=== PATIENT | male | born 1945 | race Caucasian/White ===

== ENCOUNTER 2017-05-11 06:47 | Day surgery (SDC) | payer MEDICARE, BC ==
[~2017-05-11] VITALS: Ht 170.2 cm; Wt 88.5 kg
[~2017-05-11 06:47] MED LIST: AMLODIPINE5 MG PO; ASPIRIN EC325 MG PO; ATORVASTATIN CA40 MG PO; ELIQUIS2.5 MG PO; FOLIC ACI1 PO; HYDROCHLOROT25 MG PO; LISINOPRIL40 MG PO; LO-DOSE ASA81 MG PO; METO25TAB PO; MULTIVITAMI9 PO; NITROSTAT0.4 MG SL; TAMSULOSIN HCL0.4 MG PO
[2017-05-11 09:13] VITALS: BP 90/51
== END 2017-05-11 09:25 | disposition home or self-care (01) ==
LOC: ENDO 06:47
PROVIDERS: ATTEND Surgery
PROC: 0DJD8ZZ Inspection of Lower Intestinal Tract, Via Natural or Artificial Opening Endoscopic (ICD-10-PCS; principal; 2017-05-11)
DX: Z12.11 Encounter for screening for malignant neoplasm of colon (principal); Z87.891 Personal history of nicotine dependence; Z95.1 Presence of aortocoronary bypass graft; Z95.5 Presence of coronary angioplasty implant and graft; Z79.01 Long term (current) use of anticoagulants

== ENCOUNTER 2018-04-09 13:20 | Emergency (ER) | payer MEDICARE, BC ==
[~2018-04-09] VITALS: Ht 170.2 cm; Wt 87.7 kg
[2018-04-09 14:14] LABS: ALBUMIN 3.9 g/dL (3.2-5.0); ALKALINE PHOSPHATASE 145 u/l (38-126); ANION GAP 13 (6-22 (CALC)); BILIRUBIN, TOTAL 0.6 mg/dL (0.0-1.4); BUN 26 mg/dL (8-23); BUN/CREATININE RATIO 31 (12-20 (CALC)); CARBON DIOXIDE 24 mmol/l (22-30); CHLORIDE 107 mmol/l (95-108); CREATININE 0.8 mg/dL (0.7-1.3); GFR > 60 ML/MIN (>=60 (CALC)); GFR FOR AFR.AMER. > 60 ML/MIN (>=60 (CALC)); POTASSIUM 3.9 mmol/l (3.5-5.1); SGOT/AST 34 u/l (19-48); SODIUM 141 mmol/l (137-146)
[2018-04-09 14:16] LABS: HEMATOCRIT 36.8 % (39.0-50.0); HEMOGLOBIN 13.2 g/dl (14.0-18.0); IMMATURE GRANULOCYTES 0.3 % (0.0-5.0); MEAN CELL VOLUME 90.4 fL CALC (80.0-100.0); MEAN CORPUSCULAR HGB 32.4 pG CALC (26.0-32.0); MEAN CORPUSCULAR HGB CONC 35.9 g/L CALC (32.0-36.0); NEUT# 3.75 thou/uL (1.82-7.42); RED BLOOD COUNT 4.07 mill/uL (4.70-6.10); RED CELL DISTRI WIDTH 12.1 % (11.5-15.5)
[2018-04-09 14:24] LABS: MYOGLOBIN 54 ng/mL (0 - 121)
[2018-04-09 14:52] LABS: URINE BILIRUBIN - DIPSTICK NEGATIVE (NEGATIVE); URINE BLOOD DIPSTICK NEGATIVE (NEGATIVE); URINE COLOR YELLOW; URINE GLUCOSE - DIPSTICK NEGATIVE (NEGATIVE); URINE KETONE NEGATIVE (NEGATIVE); URINE LEUK ESTERASE NEGATIVE (NEGATIVE); URINE NITRITE - DIPSTICK NEGATIVE (Negative); URINE PROTEIN - DIPSTICK NEGATIVE (NEG-TRACE); URINE UROBILINOGEN - DIPSTICK 0.2 E.U./dL (0.2)
[2018-04-09 15:06] VITALS: BP 163/77
== END 2018-04-09 15:06 | disposition left against medical advice (07) ==
LOC: ED 13:20
PROVIDERS: Emergency Medicine
DX: R07.9 Chest pain, unspecified (principal); Z91.19 Patient's noncompliance with other medical treatment and regimen; R00.1 Bradycardia, unspecified; I10 Essential (primary) hypertension; Z95.1 Presence of aortocoronary bypass graft

== ENCOUNTER 2019-04-29 | Emergency (ER) | payer MEDICARE, BC ==
[2019-04-29] MEDS ORDERED: MEMANTINE HCL10 MG PO (09:35)
[2019-04-29] MEDS ORDERED: NORVASC5 M1 PO (09:37)
[2019-04-29] MEDS ORDERED: CLEOCIN300 MG PO (10:53)
[2019-04-29] MEDS ORDERED: ULTRAM50 M1 PO (10:53)
[2019-04-29] MEDS ORDERED: CRESTOR10 MG PO (17:45)
[2019-04-29] MEDS ORDERED: METOPROL TAR25 MG PO (17:45)
[2019-04-29] MEDS ORDERED: AVODART0.5 MG PO (17:46)
[2019-04-29] MEDS ORDERED: TRAZODONE50 MG PO (17:46)
== END 2019-04-29 11:40 | disposition home or self-care (01) ==
PROC: 0H9FX0Z Drainage of Right Hand Skin with Drainage Device, External Approach (ICD-10-PCS; principal; 2019-04-29)
DX: L03.011 Cellulitis of right finger (principal); I10 Essential (primary) hypertension

== ENCOUNTER 2019-10-04 04:59 | Emergency (ER) | payer MEDICARE, BC ==
[~2019-10-04 04:59] MED LIST changes: +AVODART0.5 MG PO; +CLEOCIN300 MG PO; +CRESTOR10 MG PO; +MEMANTINE HCL10 MG PO; +METOPROL TAR25 MG PO; +NORVASC5 M1 PO; +TRAZODONE50 MG PO; +ULTRAM50 M1 PO
[2019-10-04 05:44] LABS: URINE BILIRUBIN - DIPSTICK NEGATIVE (NEGATIVE); URINE BLOOD DIPSTICK NEGATIVE (NEGATIVE); URINE COLOR YELLOW; URINE GLUCOSE - DIPSTICK NEGATIVE (NEGATIVE); URINE KETONE NEGATIVE (NEGATIVE); URINE NITRITE - DIPSTICK NEGATIVE (Negative); URINE PROTEIN - DIPSTICK NEGATIVE (NEG-TRACE); URINE UROBILINOGEN - DIPSTICK 0.2 E.U./dL (0.2)
[2019-10-04 05:45] LABS: HEMATOCRIT 36.7 % (39.0-50.0); HEMOGLOBIN 13.1 g/dl (14.0-18.0); IMMATURE GRANULOCYTES 0.2 % (0.0-5.0); MEAN CELL VOLUME 90.8 fL CALC (80.0-100.0); MEAN CORPUSCULAR HGB 32.4 pG CALC (26.0-32.0); MEAN CORPUSCULAR HGB CONC 35.7 g/dL CAL (32.0-36.0); NEUT# 2.75 thou/uL (1.82-7.42); RED BLOOD COUNT 4.04 mill/uL (4.70-6.10); RED CELL DISTRI WIDTH 12.2 % (11.5-15.5)
[2019-10-04 05:46] LABS: URINE LEUK ESTERASE TRACE (NEGATIVE)
[2019-10-04 06:00] LABS: ALBUMIN 3.8 g/dL (3.2-5.0); ALKALINE PHOSPHATASE 88 u/l (38-126); ANION GAP 10 (6-22 (CALC)); BILIRUBIN, TOTAL 0.7 mg/dL (0.0-1.4); BUN 26 mg/dL (8-23); BUN/CREATININE RATIO 28 (12-20 (CALC)); CARBON DIOXIDE 28 mmol/l (22-30); CHLORIDE 106 mmol/l (95-108); CREATININE 0.9 mg/dL (0.7-1.3); GFR > 60 ML/MIN (>=60 (CALC)); GFR FOR AFR.AMER. > 60 ML/MIN (>=60 (CALC)); MAGNESIUM 1.9 mg/dL (1.6-2.3); POTASSIUM 3.5 mmol/l (3.5-5.1); SGOT/AST 32 u/l (19-48); SODIUM 140 mmol/l (137-146); TOTAL PROTEIN 6.8 g/dL (6.3-8.2)
[2019-10-04 06:12] LABS: MYOGLOBIN 52 ng/mL (0 - 121)
[2019-10-04 06:30] LABS: TSH, 3RD GENERATION 1.73 uIU/mL (0.47 - 4.68)
[2019-10-04 06:46] VITALS: BP 135/79
== END 2019-10-04 06:50 | disposition home or self-care (01) ==
LOC: ED 04:59
PROVIDERS: Family Medicine
DX: G30.9 Alzheimer's disease, unspecified (principal); F02.81 Dementia in other diseases classified elsewhere, unspecified severity, with behavioral disturbance; I10 Essential (primary) hypertension; Z95.1 Presence of aortocoronary bypass graft